=== PATIENT | male | born 1935 | race Caucasian/White ===

== ENCOUNTER → 2016-06-25 | Outpatient (CLI) | payer MEDICARE, OTHER ==
--- NOTE | 2016-06-25 09:52 | US ---
EXAMINATION TYPE: US prostate transrectal DATE OF EXAM: 06/25/2016 9:08 AM COMPARISON: NONE CLINICAL HISTORY: N40.1 BPH. Urinary frequency This examination was performed using the transrectal probe. EXAM MEASUREMENTS: Gland Size: 4.4 x 2.9 x 5.5cm Volume: 36.7ml Predicted PSA: 4.41 Actual PSA (if available):3.0 TECHNOLOGIST IMPRESSION: Heterogeneous gland, no distinct nodule within peripheral zone at this time No suspicious hypoechoic lesions are identified. Calcifications are present with distal shadowing IMPRESSION: 1. Normal prostate. Predicted PSA = volume x 0.12 ng/ml Calculated Volume = 0.5236 x L x W x H
== END | disposition home or self-care (01) ==
LOC: RADUSMAIN 08:05
PROVIDERS: ATTEND Family Medicine
DX: N40.1 Benign prostatic hyperplasia with lower urinary tract symptoms (principal)
CPT/HCPCS: 76872

== ENCOUNTER → 2020-07-02 | Outpatient (CLI) | payer MEDICARE ==
--- NOTE | 2020-07-02 09:49 | US ---
EXAMINATION TYPE: US prostate transrectal DATE OF EXAM: 07/02/2020 COMPARISON: Prior prostate ultrasound June 25, 2016 CLINICAL HISTORY: R97.20 ELEVATED PROSTATE SPECIFIC ANTIGEN. Increasing PSA. Frequent urination. This examination was performed using the transrectal probe. EXAM MEASUREMENTS: Gland Size: 4.6 x 5.0 x 2.8 cm Volume: 33.76 ml Predicted PSA: 4.1 Actual PSA (if available):5.1 increased from 3.0 in 2017. Initial images seminal vesicles within normal limits. Prostate gland remains slightly enlarged in siz e with central calcifications. No concerning focal hypoechoic nodule.. IMPRESSION: Stable slightly enlarged prostate gland. No new suspicious nodule. Given rising PSA, adv ise urology referral. Further investigation with random sampling or MRI prostate should be considered . Predicted PSA = volume x 0.12 ng/ml Calculated Volume = 0.5236 x L x W x H
== END | disposition home or self-care (01) ==
LOC: RADUSWWP 07:05
PROVIDERS: ATTEND Family Medicine
DX: N40.0 Benign prostatic hyperplasia without lower urinary tract symptoms (principal)
CPT/HCPCS: 76872

== ENCOUNTER → 2021-01-09 | Outpatient (CLI) | payer MEDICARE | END | disposition home or self-care (01) | LOC: LABWHC1 12:49 | PROVIDERS: ATTEND Urology | DX: R97.20 Elevated prostate specific antigen [PSA] (principal) | CPT/HCPCS: 36415; 84153 ==

== ENCOUNTER → 2021-03-06 | Outpatient (CLI) | payer MEDICARE ==
[2021-03-06 21:27] LABS: HCT 44.2 % (39.6-50.0); HGB 14.1 g/dL (13.0-17.0); MCH 32.5 pg (27.0-32.0); MCHC 31.9 g/dL (32.0-37.0); MCV 101.8 fL (80.0-97.0); Platelet Count 124 X 10*3/uL (140-440); RBC 4.34 X 10*6/uL (4.40-5.60); RDW 13.2 % (11.5-14.5); WBC 9.81 X 10*3/uL (4.50-10.00)
[2021-03-06 23:08] LABS: African American GFR (CKD) 90.6 (60.0-200.0); Anion Gap 10.9 mmol/L (4.00-12.00); BUN/Creat Ratio 19.89 Ratio (12.00-20.00); Blood Urea Nitrogen 17.9 mg/dL (9.0-27.0); Calcium 9.4 mg/dL (8.7-10.3); Carbon Dioxide 27.1 mmol/L (21.6-31.8); Non-African American GFR(CKD) 78.2 (60.0-200.0); Potassium 4.1 mmol/L (3.5-5.5)
== END | disposition home or self-care (01) ==
LOC: LABWHC1 10:17
PROVIDERS: ATTEND Internal Medicine Interventional Cardiology
DX: I10 Essential (primary) hypertension (principal); I48.91 Unspecified atrial fibrillation
CPT/HCPCS: 36415; 80048; 85027

== ENCOUNTER → 2021-03-07 | Outpatient (CLI) | payer MEDICARE ==
--- NOTE | 2021-03-07 15:29 | CT ---
EXAMINATION TYPE: CT ankle LT wo con DATE OF EXAM: 03/07/2021 COMPARISON: No radiographic correlation available HISTORY: 85-year-old male S92.012A Left calcaneus fracture TECHNIQUE: Contiguous axial scanning of the left ankle without IV contrast. Coronal and sagittal rec onstructions performed. Reconstructions generated on a dedicated independent workstation. CT DLP: 266.6 mGycm Automated exposure control for dose reduction was used. FINDINGS: Marked generalized soft tissue swelling. There is a vertical fracture through the body of the calcaneus. The superior extent shows mild commin ution at the posterior margin of the posterior subtalar joint. Greater degree of comminution along th e lateral body of the calcaneus with step off along the region of the peroneal tubercle about 5 mm. T here is a sharp anterior fracture margin which abuts the posterior aspect of the peroneus longus, axi al image 92. There is medial sided impaction/flattening of the calcaneus of approximately 1.3 cm, coronal image 29 . There is additional comminution extending laterally. Oblique fracture extends across the anterior jodie caneal process with intra-articular extension into the medial margin of the calcaneocuboid joint Additional horizontally oriented fracture extends from the mid calcaneal body into the region of the sinus Tarsi. The middle subtalar joint appears intact. There is irregularity and joint space narrowing that could represent a calcaneonavicular congenital t arsal coalition. IMPRESSION: 1. COMMINUTED FRACTURE OF THE CALCANEUS. THE DOMINANT FRACTURE LINE IS VERTICALLY ORIENTED THROUGH TH E BODY OF THE CALCANEUS. THERE IS SUPERIOR COMMINUTION AT THE POSTERIOR MARGIN OF THE POSTERIOR SUBTA LAR JOINT. LATERAL COMMINUTION INCLUDES THE PERONEAL TUBERCLE AND A SHARP FRACTURE EDGE ABUTS THE CHANDLER KSIDE OF THE PERONEUS LONGUS. 2. HORIZONTALLY ORIENTED FRACTURE LINES EXTEND FROM THE MID CALCANEAL BODY INTO THE SINUS TARSI AND A LSO LATERALLY INTO THE ANTERIOR CALCANEUS. 3. ADDITIONAL OBLIQUE FRACTURE MEDIALLY ALONG THE ANTERIOR PROCESS OF THE CALCANEUS AND EXTENSION TO THE MEDIAL MARGIN OF THE CALCANEOCUBOID JOINT. 4. MEDIAL IMPACTION/FLATTENING OF THE CALCANEUS BY 1.3 CM. 5. 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
== END | disposition home or self-care (01) ==
LOC: RADCTMAIN 11:51
PROVIDERS: ATTEND Orthopaedic Surgery
DX: S92.002A Unspecified fracture of left calcaneus, initial encounter for closed fracture (principal); S92.021A Displaced fracture of anterior process of right calcaneus, initial encounter for closed fracture

== ENCOUNTER → 2021-03-17 | Outpatient (CLI) | payer MEDICARE ==
--- NOTE | 2021-03-17 17:03 | US ---
EXAMINATION TYPE: US venous doppler duplex LE LT DATE OF EXAM: 03/17/2021 4:33 PM COMPARISON: NONE CLINICAL HISTORY: I80.9 Phlebitis and thrombophlebitis of unspecifie. Left lower leg swelling from he el fracture one week ago. SIDE PERFORMED: Left TECHNIQUE: The lower extremity deep venous system is examined utilizing real time linear array sonog becky with graded compression, doppler sonography and color-flow sonography. VESSELS IMAGED: Common Femoral Vein Deep Femoral Vein Greater Saphenous Vein * Femoral Vein Popliteal Vein Small Saphenous Vein * Proximal Calf Veins (* superficial vessels) There is normal flow, compressibility, vascular waveforms. Left Leg: Negative for DVT. Medial left knee complex fluid area is seen = 4.6 x 3.5 x 1.5cm. Tech findings called to Yudi at Dr. Estrada's Office at exam's end. IMPRESSION: No evidence of deep venous thrombosis within the left lower extremity from the level of t he knee centrally. Indeterminate fluid collection suspected medial to the left knee
== END | disposition home or self-care (01) ==
LOC: RADUSWWP 15:54
PROVIDERS: ATTEND Orthopaedic Surgery
DX: R22.42 Localized swelling, mass and lump, left lower limb (principal)